=== PATIENT | female | born 1995 | race Asian ===

== ENCOUNTER → 2017-11-18 | Outpatient (CLI) | payer BC, OTHER ==
[~2017-11-18] MED LIST: ACET120S PO; FLUT0.15; [UNRECOGNIZED DRUG - CODE] PO
== END | disposition home or self-care (01) ==
LOC: C.RDSM 20:22
PROVIDERS: ATTEND Family Medicine Sports Medicine
DX: S62.101A Fracture of unspecified carpal bone, right wrist, initial encounter for closed fracture (principal); X58.XXXA Exposure to other specified factors, initial encounter